=== PATIENT | female | born 1965 | race American Indian/Alaskan Native ===

== ENCOUNTER 2018-10-26 14:47 | Emergency (ER) | payer OTHER ==
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
[2018-10-26 15:30] VITALS: BP 177/77
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
[2018-10-26] MEDS ORDERED: IBUPROFEN PO ONE (17:38)
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
== END 2018-10-26 18:20 | disposition home or self-care (01) ==
LOC: ED 14:47
DX: S29.012A Strain of muscle and tendon of back wall of thorax, initial encounter (principal); S13.4XXA Sprain of ligaments of cervical spine, initial encounter; K21.9 Gastro-esophageal reflux disease without esophagitis; M19.90 Unspecified osteoarthritis, unspecified site; G43.909 Migraine, unspecified, not intractable, without status migrainosus; Z79.899 Other long term (current) drug therapy; V89.2XXA Person injured in unspecified motor-vehicle accident, traffic, initial encounter; Y93.89 Activity, other specified; Y92.488 Other paved roadways as the place of occurrence of the external cause; Y99.8 Other external cause status
CPT/HCPCS: 72072; 72100; 99283

== ENCOUNTER 2018-11-30 12:56 | Emergency (ER) | payer OTHER ==
[2018-11-30 13:13] VITALS: BP 162/62
--- NOTE | 2018-11-30 13:14 | Event Note ---
ED Screening Note Date of service: 11/23/18 Time: 13:11 ED Screening Note: This is a 53 y.o. F. that presents to the ER with chest pain since yesterday. PMH of GERD This initial assessment/diagnostic orders/clinical plan/treatment(s) is/are subject to change based on patients health status, clinical progression and re- assessment by fellow clinical providers in the ED. Further treatment and workup at subsequent clinical providers discretion. Patient/guardian urged not to elope from the ED as their condition may be serious if not clinically assessed and managed. Initial orders include: Labs
[2018-11-30 14:02] LABS: Basophils # (Auto) 0.1 K/mm3 (0.0-0.1); Basophils % (Auto) 1.5 % (0.0-1.8); Eosinophils # (Auto) 0.2 K/mm3 (0.0-0.4); Eosinophils % (Auto) 4.7 % (0.0-4.3); Hematocrit 37.3 % (30.3-42.9); Hemoglobin 12.7 gm/dl (10.1-14.3); Lymphocytes # (Auto) 2.1 K/mm3 (1.2-5.4); Lymphocytes % (Auto) 49.2 % (13.4-35.0); Mean Corpuscular HGB Conc 34 % (30-34); Mean Corpuscular Volume 91 fl (79-97); Monocytes # (Auto) 0.3 K/mm3 (0.0-0.8); Monocytes % (Auto) 5.9 % (0.0-7.3); Platelet Count 242 K/mm3 (140-440); Red Cell Distribution Width 11.9 % (13.2-15.2)
[2018-11-30] MEDS ORDERED: SODIUM CHLORIDE 0.9% 1000 ML 1,000 ML IV ONE (14:11)
[2018-11-30] MEDS ORDERED: ONDANSETRON 4 MG/2 ML INJ IV ONE (14:11)
[2018-11-30] MEDS ORDERED: KETOROLAC 30 MG/1 ML INJ IV ONE (14:11)
[2018-11-30] MEDS ORDERED: FAMOTIDINE 20 MG/2 ML INJ IV ONE (14:11)
[2018-11-30] MEDS ORDERED: DICYCLOMINE 20 MG/2 ML INJ IM ONE (14:11)
[2018-11-30 14:21] LABS: Alanine Aminotransferase 11 units/L (7-56); Albumin 4.6 g/dL (3.9-5); BUN/Creatinine Ratio 16; Blood Urea Nitrogen 14 mg/dL (7-17); Calcium 9.3 mg/dL (8.4-10.2); Hemolysis Index 9
[2018-11-30 16:26] LABS: Bilirubin,Urine NEG (Negative); Blood,Urine SM (Negative); Color,Urine Yellow (Yellow); Protein,Urine <15 mg/dL mg/dL (Negative); Urobilinogen,Urine < 2.0 mg/dL (<2.0); WBC,Urine < 1.0 /HPF (0.0-6.0)
--- NOTE | 2018-11-30 16:40 | Emergency Department Report ---
ED Abdominal Pain HPI - General Chief Complaint: Abdominal Pain Stated Complaint: BACK/ABD PAIN Time Seen by Provider: 11/30/18 13:11 Source: patient, EMS Mode of arrival: Stretcher Limitations: No Limitations - History of Present Illness Initial Comments: Patient is a 53-year-old female who's complaining of some mid abdominal pain with some mild discomfort in the back over the last day. Patient states she has mild dizziness when she stands. She denies nausea vomiting diarrhea fevers or chills. States the pain is crampy in nature is 10 out of 10 in severity. Patient states she has a history of back pain and she took a pain pill yesterday without eating and thinks this may have contributed to the pain. Patient denies any dysuria or urinary frequency vaginal discharge or abnormal vaginal bleeding. His last meal was pizza Severity scale (0 -10): 4 - Related Data Previous Rx's Medication Instructions Recorded Last Taken Type Cyclobenzaprine [Flexeril] 10 mg PO QHS PRN #10 tablet 10/26/18 Unknown Rx Ibuprofen [Motrin] 600 mg PO Q8H PRN #20 tablet 10/26/18 Unknown Rx Dicyclomine [Bentyl] 20 mg PO QID #10 tablet 11/30/18 Unknown Rx Famotidine [Pepcid] 40 mg PO QHS #10 tablet 11/30/18 Unknown Rx traMADol [Ultram] 50 mg PO Q6HR PRN #12 tablet 11/30/18 Unknown Rx Allergies Allergy/AdvReac Type Severity Reaction Status Date / Time No Known Allergies Allergy Verified 11/30/18 13:12 ED Review of Systems ROS: Stated complaint: BACK/ABD PAIN Other details as noted in HPI Comment: All other systems reviewed and negative ED Past Medical Hx - Past Medical History Hx GERD: Yes Hx Sickle Cell Disease: Yes (trait) Hx Arthritis: Yes Hx Headaches / Migraines: Yes - Surgical History Past Surgical History?: No - Social History Smoking Status: Never Smoker Substance Use Type: None - Medications Home Medications: Home Medications Medication Instructions Recorded Confirmed Last Taken Type Cyclobenzaprine [Flexeril] 10 mg PO QHS PRN #10 tablet 10/26/18 Unknown Rx Ibuprofen [Motrin] 600 mg PO Q8H PRN #20 tablet 10/26/18 Unknown Rx Dicyclomine [Bentyl] 20 mg PO QID #10 tablet 11/30/18 Unknown Rx Famotidine [Pepcid] 40 mg PO QHS #10 tablet 11/30/18 Unknown Rx traMADol [Ultram] 50 mg PO Q6HR PRN #12 tablet 11/30/18 Unknown Rx ED Physical Exam - General Limitations: No Limitations General appearance: alert, in no apparent distress - Head Head exam: Present: atraumatic, normocephalic - Eye Eye exam: Present: normal appearance, PERRL, EOMI - ENT ENT exam: Present: mucous membranes moist - Neck Neck exam: Present: normal inspection - Respiratory Respiratory exam: Present: normal lung sounds bilaterally. Absent: respiratory distress, wheezes, rales, rhonchi - Cardiovascular Cardiovascular Exam: Present: regular rate, normal rhythm. Absent: systolic murmur, diastolic murmur, rubs, gallop - GI/Abdominal GI/Abdominal exam: Present: soft, tenderness (generalized central abd pain), normal bowel sounds. Absent: distended, guarding, rebound, rigid - Extremities Exam Extremities exam: Present: normal inspection - Back Exam Back exam: Present: normal inspection - Neurological Exam Neurological exam: Present: alert, oriented X3 - Psychiatric Psychiatric exam: Present: normal affect, normal mood - Skin Skin exam: Present: warm, dry, intact, normal color. Absent: rash ED Course Vital Signs 11/30/18 13:11 Temperature 97.8 F Pulse Rate 60 Respiratory 20 Rate Blood Pressure 162/62 O2 Sat by Pulse 98 Oximetry ED Medical Decision Making - Lab Data Result diagrams: 11/30/18 13:42 11/30/18 13:42 Lab Results 11/30/18 11/30/18 11/30/18 Range/Units 13:42 13:42 15:37 WBC 4.3 L (4.5-11.0) K/mm3 RBC 4.10 (3.65-5.03) M/mm3 Hgb 12.7 (10.1-14.3) gm/dl Hct 37.3 (30.3-42.9) % MCV 91 (79-97) fl MCH 31 (28-32) pg MCHC 34 (30-34) % RDW 11.9 L (13.2-15.2) % Plt Count 242 (140-440) K/mm3 Lymph % (Auto) 49.2 H (13.4-35.0) % [place] % (Auto) 5.9 (0.0-7.3) % Eos % (Auto) 4.7 H (0.0-4.3) % Baso % (Auto) 1.5 (0.0-1.8) % Lymph # 2.1 (1.2-5.4) K/mm3 [place] # 0.3 (0.0-0.8) K/mm3 Eos # 0.2 (0.0-0.4) K/mm3 Baso # 0.1 (0.0-0.1) K/mm3 Seg Neutrophils % 38.7 L (40.0-70.0) % Seg Neutrophils # 1.7 L (1.8-7.7) K/mm3 Sodium 140 (137-145) mmol/L Potassium 3.7 (3.6-5.0) mmol/L Chloride 101.5 (98-107) mmol/L Carbon Dioxide 29 (22-30) mmol/L Anion Gap 13 mmol/L BUN 14 (7-17) mg/dL Creatinine 0.9 (0.7-1.2) mg/dL Estimated GFR > 60 ml/min BUN/Creatinine Ratio 16 % Glucose 94 (65-100) mg/dL Calcium 9.3 (8.4-10.2) mg/dL Total Bilirubin 0.40 (0.1-1.2) mg/dL AST 17 (5-40) units/L ALT 11 (7-56) units/L Alkaline Phosphatase 63 (35-129) units/L Total Protein 8.8 H (6.3-8.2) g/dL Albumin 4.6 (3.9-5) g/dL Albumin/Globulin Ratio 1.1 % Lipase 34 (13-60) units/L Urine Bilirubin Neg (Negative) Urine RBC (Auto) 1.0 (0.0-6.0) /HPF U Epithel Cells (Auto) 9.0 (0-13.0) /HPF - Radiology Data Radiology results: report reviewed (ultrasound of the epigastrium and right upper quadrant shows no acute abnormality. There is no gallstones present. She has no evidence of pancreatitis.) - Medical Decision Making Patient likely with gastritis. She's been ruled out for pancreatitis hepatitis and cholecystitis. Patient has been taken meloxicam for back pain. She will be taken off the meloxicam and start Ultram also given medications for symptomatic relief. Critical care attestation.: If time is entered above; I have spent that time in minutes in the direct care of this critically ill patient, excluding procedure time. ED Disposition Clinical Impression: Acute gastritis Disposition: DC-01 TO HOME OR SELFCARE Is pt being admited?: No Does the pt Need Aspirin: No Condition: Stable Instructions: Gastritis (ED) Additional Instructions: Please discontinue the meloxicam as this may be causing stomach irritation. Referrals: [facility] [Provider Group] - 3-5 Days Forms: Work/School Release Form(ED) Time of Disposition: 17:08
--- NOTE | 2018-12-01 10:46 | Ultrasound Report ---
ULTRASOUND ABDOMEN, LIMITED (RIGHT UPPER QUADRANT) INDICATION: RUQ/epigastric pain. COMPARISON: None available. FINDINGS: Pancreas: Visualized portion shows no significant abnormality. Liver: Normal. Gallbladder: Normal. Bile ducts: Normal. Common Bile Duct measures 3 mm. Free fluid: None. Additional Findings: None. IMPRESSION: 1. No sonographic abnormality of the right upper quadrant. Signer Name: Erik Norwood MD Signed: 12/01/2018 10:42 AM Workstation Name: [id number]
== END 2018-11-30 17:25 | disposition home or self-care (01) ==
LOC: ED 12:56
DX: K29.00 Acute gastritis without bleeding (principal); R42 Dizziness and giddiness; K21.9 Gastro-esophageal reflux disease without esophagitis; D57.3 Sickle-cell trait; M19.90 Unspecified osteoarthritis, unspecified site; G43.909 Migraine, unspecified, not intractable, without status migrainosus; Z79.899 Other long term (current) drug therapy
CPT/HCPCS: 36415; 76705; 80053; 81001; 83690; 85025; 96361; 96372; 96374; 96375; 99284; J0500; J1885; J2405; J7030